=== PATIENT | female | born 1970 | race Hispanic/Latino ===

== ENCOUNTER 2017-05-02 18:12 | Emergency (ER) | payer MEDICAID ==
[2017-05-02 18:44] VITALS: TEMP 98; BMI 23.1
--- NOTE | 2017-05-02 19:09 | ED PDOC ---
Arrival/HPI - General Chief Complaint: Cough, Cold, Congestion Time Seen by Provider: 05/02/17 19:06 Historian: Patient - History of Present Illness Narrative History of Present Illness (Text): 05/02/17 19:08 This 46 yo female with pmh pna, presents to this ED c/o cough, nasal congetion x 6 days. Denies sob, cp, fever, abdominal pain, or dizziness. Time/Duration: Other (see hpi) Context: Home Past Medical History - Provider Review Nursing Documentation Reviewed: Yes - Cardiac Hx Cardiac Disorders: No - Pulmonary Hx Respiratory Disorders: Yes Hx Pneumonia: Yes - Psychiatric Hx Substance Use: No - Surgical History Hx Appendectomy: Yes - Anesthesia Hx Anesthesia: Yes Hx Anesthesia Reactions: No Hx Malignant Hyperthermia: No Family/Social History - Physician Review Nursing Documentation Reviewed: Yes Family/Social History: Other (noncontributory) Smoking Status: Never Smoked Hx Alcohol Use: Yes Frequency of alcohol use: Socially Hx Substance Use: No Allergies/Home Meds Allergies/Adverse Reactions: Allergies procaine [From Novocain] Allergy (Verified 05/02/17 18:41) ANGIOEDEMA Review of Systems - Review of Systems Constitutional: Normal. absent: Fatigue, Weight Change Eyes: Normal ENT: Normal Respiratory: Cough, Sputum Cardiovascular: Normal. absent: Chest Pain, Palpitations Gastrointestinal: Normal. absent: Abdominal Pain, Nausea, Vomiting Genitourinary Female: Normal Musculoskeletal: Normal. absent: Back Pain, Neck Pain Skin: Normal. absent: Rash Neurological: Normal Endocrine: Normal Hemo/Lymphatic: Normal Psychiatric: Normal Physical Exam Vital Signs Temp Pulse Resp BP Pulse Ox 05/02/17 18:36 98 F 78 18 121/81 98 Temperature: Afebrile Blood Pressure: Normal Pulse: Regular Respiratory Rate: Normal Appearance: Positive for: Well-Appearing, Non-Toxic, Comfortable Pain Distress: None Mental Status: Positive for: Alert and Oriented X 3 - Systems Exam Head: Present: Atraumatic, Normocephalic Pupils: Present: PERRL Extroacular Muscles: Present: EOMI Conjunctiva: Present: Normal Mouth: Present: Moist Mucous Membranes Neck: Present: Normal Range of Motion. No: Meningeal Signs Respiratory/Chest: Present: Clear to Auscultation, Good Air Exchange. No: Respiratory Distress, Accessory Muscle Use Cardiovascular: Present: Regular Rate and Rhythm, Normal S1, S2. No: Murmurs Abdomen: No: Tenderness Back: Present: Normal Inspection. No: CVA Tenderness Upper Extremity: Present: Normal Inspection, Normal ROM. No: Cyanosis, Edema Lower Extremity: Present: Normal Inspection, Normal ROM. No: Edema Neurological: Present: GCS=15, CN II-XII Intact, Speech Normal, Motor Func Grossly Intact, Normal Sensory Function, Normal Cerebellar Funct, Gait Normal, Memory Normal Skin: Present: Warm, Dry, Normal Color. No: Rashes Psychiatric: Present: Alert, Oriented x 3, Normal Insight, Normal Concentration Medical Decision Making ED Course and Treatment: 05/02/17 20:29 Re-evaluation. Patient feels better. Discussed results and plan with patient who expresses understanding. All questions answered and there is agreement with the plan to discharge home with instructions. Patient stable for discharge. Return if symptoms persist or worsen. Re-evaluation Time: 20:29 Reassessment Condition: Re-examined, Improved - Lab Interpretations Lab Results: Lab Results 05/02/17 19:42: Influenza Typ A,B (EIA) Negative for flu a/b I have reviewed the lab results: Yes Interpretation: No clinic. lab abnormalty - RAD Interpretation Narrative RAD Interpretations (Text): 05/02/17 20:29 Chest x-rays: NAD Radiology Orders: 05/02/17 19:06 CHEST TWO VIEWS (PA/LAT) [RAD] Stat - Medication Orders Current Medication Orders: Discontinued Medications Promethazine HCl/Codeine (Phenergan/Codeine Oral Syrup) 5 ml PO STAT STA Stop: 05/02/17 19:20 Last Admin: 05/02/17 19:52 Dose: 5 ml Disposition/Present on Arrival - Present on Arrival Any Indicators Present on Arrival: No History of DVT/PE: No History of Uncontrolled Diabetes: No Urinary Catheter: No History of Decub. Ulcer: No History Surgical Site Infection Following: None - Disposition Have Diagnosis and Disposition been Completed?: Yes Diagnosis: Upper respiratory infection Disposition: HOME/ ROUTINE Disposition Time: 20:30 Patient Plan: Discharge Patient Problems: Current Active Problems Problem Status Onset Upper respiratory infection Acute Condition: GOOD Discharge Instructions (ExitCare): Upper Respiratory Infection (ED) Additional Instructions: Call private doctor for follow up visit in 1-2 days. Take medication as instructed. Return to emergency if symptoms worsen. Prescriptions: Fluticasone Propionate [Flonase] 1 actuation NS DAILY #1 bottle Promethazine/Codeine [Codeine/Promethazine 10 MG/5 Ml-6.25 MG/5 Ml] 5 ml PO Q4H PRN #120 ml PRN Reason: Cough And Congestion Referrals: Alereonlexa García Reevens, [Primary Care Provider] - Follow up with primary [facility] [Outside] - Follow up with primary [facility] [Outside] - Follow up with primary Forms: [employer] (Armenian), WORK NOTE
[2017-05-02] MEDS ORDERED: Promethazine/Cod 6.25mg-10mg/5ml Syr UD PO STA (19:19)
[2017-05-02 20:29] VITALS: BP 134/81; PULSE 87; RESP 14; O2SAT 96
--- NOTE | 2017-05-03 08:45 | RAD ---
HISTORY: cough COMPARISON: None available. TECHNIQUE: Chest PA and lateral FINDINGS: LUNGS: No focal consolidation. Please note that chest x-ray has limited sensitivity for the detection of pulmonary masses. PLEURA: No significant pleural effusion identified. No definite pneumothorax . CARDIOVASCULAR: The cardiomediastinal silhouette appears within normal limits of size. OSSEOUS STRUCTURES: No acute osseous abnormality identified. VISUALIZED UPPER ABDOMEN: Unremarkable. OTHER FINDINGS: None. IMPRESSION: No focal consolidation, significant pleural effusion, or definite pneumothorax identified.
== END 2017-05-02 20:46 | disposition home or self-care (01) ==
LOC: ED 18:12 → MERGE 18:12 → ED 20:46
DX: J06.9 Acute upper respiratory infection, unspecified (principal)

== ENCOUNTER 2017-07-01 11:33 | Emergency (ER) | payer MEDICAID ==
[2017-07-01 11:33] VITALS: BMI 23.1
[2017-07-01] MEDS ORDERED: Sodium Chloride 0.9% 1,000 ML IV STA (12:23)
--- NOTE | 2017-07-01 12:31 | ED PDOC ---
Arrival/HPI - General Historian: Patient - History of Present Illness Time/Duration: < month Symptom Course: Intermittent Quality: Aching, Pressure Severity Level: 7 - General Chief Complaint: Cough, Cold, Congestion - History of Present Illness Narrative History of Present Illness (Text): 07/01/17 12:28 46F pmhx significant for PNA, Bronchitis, Lyme disease, recent visit to the hospital for URI [place] [facility] [place] w/ productive yellow/orange cough and associated bilateral squeezing headaches that started on Thursday. Admits to being in contact w/ a friend who recently traveled to [facility] and came back and was recently found to have the flu. Symptoms are similar to those when she presented on 05/02/2017. Symptoms has resolved after an additional 2 weeks. Currently states associated generalized body weakness, fatigue, chills. Denies fevers. (You Montgomery) Past Medical History - Provider Review Nursing Documentation Reviewed: Yes - Travel History Have you recently traveled outside [place] w/in the past 3 mons?: No - Cardiac Hx Cardiac Disorders: No - Pulmonary Hx Respiratory Disorders: Yes Hx Pneumonia: Yes - Neurological Hx Neurological Disorder: No - HEENT Hx HEENT Disorder: No - Renal Hx Renal Disorder: No - Endocrine/Metabolic Hx Endocrine Disorders: No - Hematological/Oncological Hx Blood Disorders: No - Integumentary Hx Dermatological Disorder: No - Musculoskeletal/Rheumatological Hx Musculoskeletal Disorders: No - Gastrointestinal Hx Gastrointestinal Disorders: No - Genitourinary/Gynecological Hx Genitourinary Disorders: No - Psychiatric Hx Psychophysiologic Disorder: No Hx Substance Use: No - Surgical History Hx Appendectomy: Yes - Anesthesia Hx Anesthesia: Yes Hx Anesthesia Reactions: No Hx Malignant Hyperthermia: No Family/Social History - Physician Review Nursing Documentation Reviewed: Yes Family/Social History: Other (non-contributory) Smoking Status: Never Smoked Hx Alcohol Use: Yes Hx Substance Use: No Allergies/Home Meds Allergies/Adverse Reactions: Allergies procaine [From Novocain] Allergy (Verified 07/01/17 11:35) ANGIOEDEMA Review of Systems - Review of Systems Constitutional: Fatigue, Night Sweats. absent: Weight Change, Fevers Eyes: absent: Vision Changes, Photophobia ENT: Sore Throat, Sinus Congestion. absent: Hearing Changes, Tinnitus Respiratory: Cough, Sputum. absent: SOB Cardiovascular: absent: Chest Pain, Palpitations, Edema, Calf Pain Gastrointestinal: absent: Abdominal Pain, Stool Changes, Diarrhea, Nausea, Vomiting Genitourinary Female: absent: Dysuria, Urine Output Changes Skin: absent: Rash, Skin Lesions, Laceration Neurological: absent: Headache Endocrine: absent: Diaphoresis Physical Exam Vital Signs Reviewed: Yes Temperature: Afebrile Blood Pressure: Normal Pulse: Regular Respiratory Rate: Normal Appearance: Positive for: Well-Appearing, Non-Toxic, Comfortable Pain Distress: None Mental Status: Positive for: Alert and Oriented X 3 - Systems Exam Head: Present: Atraumatic, Normocephalic Extroacular Muscles: Present: EOMI Conjunctiva: Present: Normal Mouth: Present: Dry Neck: Present: Normal Range of Motion Respiratory/Chest: Present: Clear to Auscultation, Good Air Exchange. No: Respiratory Distress, Accessory Muscle Use, Wheezes, Retracting, Rhonchi Cardiovascular: Present: Regular Rate and Rhythm, Normal S1, S2. No: Murmurs Abdomen: Present: Normal Bowel Sounds. No: Tenderness, Distention, Peritoneal Signs Back: Present: Normal Inspection. No: CVA Tenderness Upper Extremity: Present: Normal Inspection, Normal ROM, NORMAL PULSES. No: Cyanosis, Edema Lower Extremity: Present: Normal Inspection. No: Edema Neurological: Present: GCS=15, Speech Normal Skin: Present: Warm, Dry, Normal Color. No: Rashes Psychiatric: Present: Alert, Oriented x 3 Vital Signs Temp Pulse Resp BP Pulse Ox 07/01/17 11:35 98.5 F 96 H 16 121/83 97 Medical Decision Making - Lab Interpretations I have reviewed the lab results: Yes Interpretation: No clinic. lab abnormalty ED Course and Treatment: Patient Seen With Resident: In agreement with resident note which contains more details about the patient. Patient was seen and evaluated with resident. Came up with plan and treatment together. (Magdy Shine) 07/01/17 12:35 CBC/BMP/Rapid Flu IVF/Toradol CXR UA Of note: Urine look concentrated and Influenza + Feeling better after IVF: Urine Negative for nitrites/leukocytes Counselled patient on proper hydration and nutrition. Cleared for discharge on Abx to prevent a superimposing infection (You Montgomery) - Lab Interpretations Narrative Lab Interpretation (Text): 07/01/17 14:46 Influenza B + Urine negative nitrites/leukocytes (You Montgomery) Lab Results: 07/01/17 12:51 07/01/17 12:51 Lab Results 07/01/17 14:00: Urine Color Yellow, Urine Appearance Clear, Urine pH 5.5, Ur Specific [place] >= 1.030, Urine Protein Trace H, Urine Glucose (UA) Negative, Urine Ketones Negative, Urine Blood Moderate H, Urine Nitrate Negative, Urine Bilirubin Negative, Urine Urobilinogen 0.2, Ur Leukocyte Esterase Negative, Urine RBC Pending, Urine WBC Pending 07/01/17 12:51: Influenza Typ A,B (EIA) Pos for influenza b H 07/01/17 12:51: Sodium 139, Chloride 104, Potassium 4.2, Carbon Dioxide 23, Anion Gap 16, BUN 8, Creatinine 0.5 L, Est GFR ( Amer) > 60, Est GFR (Non -Af Amer) > 60, Random Glucose 98, Calcium 9.1 07/01/17 12:51: WBC 3.6 L, RBC 4.55, Hgb 13.9, Hct 40.0, MCV 87.9, MCH 30.5, MCHC 34.8, RDW 12.8, Plt Count 161, MPV 9.9, Gran % 64.9, Lymph % (Auto) 15.3 L , [place] % (Auto) 19.2 H, Eos % (Auto) 0.3 L, Baso % (Auto) 0.3, Gran # 2.34, Lymph # (Auto) 0.6 L, [place] # (Auto) 0.7 H, Eos # (Auto) 0.0, Baso # (Auto) 0.01 07/01/17 12:51: pO2 101 H, VBG pH 7.41, VBG pCO2 43.0, VBG HCO3 27.3, VBG Total CO2 28.6 H, VBG O2 Sat (Calc) 99.4 H, VBG Base Excess 2.2 H, VBG Potassium 4.0, Sodium 136.0, Chloride 104.0, Glucose 100, Lactate 0.8, FiO2 21.0, Venous Blood Potassium 4.0 - RAD Interpretation Radiology Orders: 07/01/17 12:23 CHEST TWO VIEWS (PA/LAT) [RAD] Stat - Medication Orders Current Medication Orders: Discontinued Medications Sodium Chloride (Sodium Chloride 0.9%) 1,000 mls @ 999 mls/hr IV .Q1H1M STA Stop: 07/01/17 13:23 Last Admin: 07/01/17 12:53 Dose: 999 mls/hr eMAR Start Stop Document 07/01/17 12:53 [email or web address] (Rec: 07/01/17 12:[id number]) Intravenous Solution Start Date 07/01/17 Start Time 12:54 End Date 07/01/17 Ceftriaxone Sodium (Rocephin 1 Gram Ivpb) 1 gm in 100 mls @ 200 mls/hr IVPB STAT STA PRN Reason: Protocol Stop: 07/01/17 13:40 Last Admin: 07/01/17 14:12 Dose: 200 mls/hr eMAR Start Stop Document 07/01/17 14:12 [email or web address] (Rec: 07/01/17 14:13 [place] [id number]) Intravenous Solution Start Date 07/01/17 Start Time 14:13 End Date 07/01/17 Azithromycin (Zithromax 500mg In Ns) 500 mg in 250 mls @ 167 mls/hr IVPB STAT STA PRN Reason: Protocol Stop: 07/01/17 14:41 Ketorolac Tromethamine (Toradol) 30 mg IVP STAT STA Stop: 07/01/17 12:24 Last Admin: 07/01/17 12:54 Dose: 30 mg MAR Pain Assessment Document 07/01/17 12:54 [email or web address] (Rec: 07/01/17 12:[id number]- [id number]) Pain Reassessment Is this a pain reassessment? No Sleep Is patient sleeping during reassessment? No Presence of Pain Presence of Pain Yes Pain Scale Used Pain Scale Used Numeric Location Pain Location Body Site Throat Chest Description Description Intermittent Intensity of Pain at present 5 Pain Behavior Facial Grimacing Aggravating Factors Changing Position Alleviating Factors/Management Medication Techniques Alleviating Factors Medication IVP Administration Document 07/01/17 12:54 [email or web address] (Rec: 07/01/17 12:[id number]- [id number]) Charges for Administration # of IVP Administrations 1 Metoclopramide HCl (Reglan) 10 mg IVP STAT STA Stop: 07/01/17 13:12 Last Admin: 07/01/17 14:13 Dose: 10 mg IVP Administration Document 07/01/17 14:13 [email or web address] (Rec: 07/01/17 14:14 [id number]) Charges for Administration # of IVP Administrations 1 Disposition/Present on Arrival - Present on Arrival Any Indicators Present on Arrival: No History of DVT/PE: No History of Uncontrolled Diabetes: No Urinary Catheter: No History of Decub. Ulcer: No History Surgical Site Infection Following: None - Disposition Have Diagnosis and Disposition been Completed?: Yes Disposition Time: 14:48 Isolation: Airborne Patient Plan: Discharge - Disposition Diagnosis: Influenza B, URI (upper respiratory infection) Disposition: HOME/ ROUTINE Patient Problems: Current Active Problems Problem Status Onset URI (upper respiratory infection) Acute Condition: GOOD Discharge Instructions (ExitCare): Flu, Adult (DC) Additional Instructions: Thank you for letting us take care of you today. You were treated for Influenza type B. The emergency medical care you received today was directed at your acute symptoms. If you were prescribed any medication, please fill it and take as directed. It may take several days for your symptoms to resolve. Return to the Emergency Department if your symptoms worsen, do not improve, or if you have any other problems. Stay hydrated, drink plenty of fluids. Take Antibiotics as prescribed. Please contact your doctor or call one of the physicians/clinics you have been referred to that are listed on the Patient Visit Information form that is included in your discharge packet. Bring any paperwork you were given at discharge with you along with any medications you are taking to your follow up visit. Our treatment cannot replace ongoing medical care by a primary care provider (PCP) outside of the emergency department. Thank you for allowing the [facility] [facility] team to be part of your care today. Referrals: Pomogatellexa García Reevens, [Primary Care Provider] - Follow up with primary Forms: [employer] (Azeri)
[2017-07-01 13:03] LABS: VENOUS BLOOD GAS BASE EXCESS 2.2 mmol/L (0.0-2.0); VENOUS BLOOD GAS PO2 101 mm/Hg (30-55); VENOUS BLOOD PH 7.41 (7.32-7.43)
[2017-07-01] MEDS ORDERED: cefTRIAXone 1 gm 1 GM/100 ML BAG IVPB STA (13:11)
[2017-07-01] MEDS ORDERED: Azithromycin 500MG/NS 250ml 500 MG/250 ML BAG IVPB STA (13:12)
[2017-07-01 13:14] LABS: BASO # 0.01 K/mm3 (0.0-2.0); BASO % 0.3 % (0.0-3.0); CALCIUM 9.1 mg/dL (8.4-10.5); EOS % 0.3 % (1.5-5.0); GFR AFRICAN-AMERICAN > 60; GFR NON-AFRICAN AMERICAN > 60; GRAN # 2.34 (1.4-6.5); GRAN % 64.9 % (50.0-68.0); HEMOGLOBIN 13.9 g/dL (12.0-16.0); LYMPH # 0.6 (1.2-3.4); LYMPH % 15.3 % (22.0-35.0); MEAN CELL VOLUME 87.9 fl (80.0-105.0); MEAN CORPUSCULAR HEMOGLOBIN 30.5 pg (25.0-35.0); MEAN CORPUSCULAR HGB CONC 34.8 g/dl (31.0-37.0); MEAN PLATELET VOLUME 9.9 fl (7.0-11.0); MONO # 0.7 (0.1-0.6); MONO % 19.2 % (1.0-6.0); RBC 4.55 10^6/uL (3.5-6.1); RED CELL DISTRIBUTION WIDTH 12.8 % (11.5-14.5); WHITE BLOOD COUNT 3.6 10^3/ul (4.5-11.0)
[2017-07-01 13:32] LABS: BLOOD UREA NITROGEN 8 mg/dL (7-21)
[2017-07-01 14:25] LABS: PH,URINE 5.5 (4.7-8.0); URINE BILIRUBIN NEGATIVE (NEGATIVE); URINE BLOOD MODERATE (NEGATIVE); URINE GLUCOSE (UA) NEGATIVE (NEGATIVE); URINE LEUKOCYTE ESTERASE NEGATIVE Leu/uL (NEGATIVE); URINE PROTEIN TRACE mg/dL (<30 mg/dL); URINE UROBILINOGEN 0.2 E.U./dL (<1 E.U./dL)
[2017-07-01 14:35] LABS: URINE APPEARANCE CLEAR (CLEAR); URINE COLOR YELLOW (YELLOW)
[2017-07-01 14:46] LABS: URINE RBC TNTC /hpf (0-2)
[2017-07-01 14:47] LABS: URINE AMORPHOUS SEDIMENT MODERATE; URINE BACTERIA MANY (NEG)
[2017-07-01 15:15] VITALS: BP 132/83
[2017-07-01 17:24] VITALS: PULSE 75; RESP 18; TEMP 98
[2017-07-01 17:25] VITALS: O2SAT 99
== END 2017-07-01 17:25 | disposition home or self-care (01) ==
LOC: ED 11:33
DX: J40 Bronchitis, not specified as acute or chronic (principal); J10.1 Influenza due to other identified influenza virus with other respiratory manifestations
CPT/HCPCS: 80048; 81001; 82803; 85025; 87086; 87804; 96374; 96375; 99283; J0456; J0696; J1885; J2765; J7040